=== PATIENT | female | born 1950 | race African-American/Black ===

== ENCOUNTER → 2016-06-19 | Outpatient (CLI) | payer MEDICARE, BC ==
[~2016-06-19] MED LIST: ANTIVERT 12.512.5 MG PO; ASPIRIN 81M81 MG/TA2 PO; BENICAR 20MG TA20 MG PO; CARAFATE 1GM1 G PO; COREG12.5 MG PO; COZAAR 50MG50 MG/TAB PO; EFFEXOR XR75 MG/CAP PO; HALCION0.25 MG PO; HYGROTON25 MG; LASIX 20MG TABL20 MG PO; LASIX 40MG TABL40 MG PO; LIPITOR40 MG PO; LISINOPRIL20 MG PO; MOBIC 7.5MG7.5 MG PO; NORCO 325 MG-51 TAB PO; NORMODYNE100 MG PO; NORVASC 5MG5 MG/TAB PO; PRILOSEC 20MG20 MG PO; TRIAZOLAM0.25 MG PO; TYLENOL W/COD1 UDTAB PO; ULTRAM 50MG TAB50 MG; ULTRAM 50MG TAB50 MG PO; VALIUM 10MG10 MG/TAB PO; XANAX .25M0.25 MG/TA PO; XANAX 0.5MG0.5 MG PO; ZOCOR 20MG20 MG PO
== END ==
LOC: MC.RAD 14:00
DX: Z12.31 Encounter for screening mammogram for malignant neoplasm of breast (principal)

== ENCOUNTER → 2017-02-12 | Outpatient (CLI) | payer MEDICARE, BC | LOC: COL.PUL 12:29 | DX: R06.02 Shortness of breath (principal); Z77.22 Contact with and (suspected) exposure to environmental tobacco smoke (acute) (chronic) ==

== ENCOUNTER → 2017-03-22 | Outpatient (CLI) | payer MEDICARE, BC | LOC: COL.PUL 12:47 | DX: R06.02 Shortness of breath (principal); R94.2 Abnormal results of pulmonary function studies | CPT/HCPCS: J7674 ==

== ENCOUNTER → 2017-10-09 | Outpatient (CLI) | payer MEDICARE, BC | LOC: MC.RAD 14:08 | DX: Z12.31 Encounter for screening mammogram for malignant neoplasm of breast (principal) ==

== ENCOUNTER → 2018-11-26 | Outpatient (CLI) | payer MEDICARE, BC | LOC: MC.RAD 13:37 | DX: Z12.31 Encounter for screening mammogram for malignant neoplasm of breast (principal) ==

== ENCOUNTER → 2018-12-03 | Outpatient (CLI) | payer MEDICARE, BC | LOC: MC.RAD 12:54 | DX: N64.89 Other specified disorders of breast (principal) | CPT/HCPCS: G0279 ==

== ENCOUNTER → 2019-12-05 | Outpatient (CLI) | payer MEDICARE, BC | LOC: MC.RAD 13:47 | DX: Z12.31 Encounter for screening mammogram for malignant neoplasm of breast (principal) ==

== ENCOUNTER → 2021-01-06 | Outpatient (CLI) | payer MEDICARE, BC | LOC: MC.RAD 09:58 | DX: Z12.31 Encounter for screening mammogram for malignant neoplasm of breast (principal) ==